=== PATIENT | male | born 1960 | race Caucasian/White ===

== ENCOUNTER 2016-12-11 10:30 | Emergency (ER) | payer OTHER ==
[~2016-12-11] VITALS: Ht 175.3 cm; Wt 98.0 kg
[2016-12-11 13:28] VITALS: BP 153/92
[2016-12-11] MEDS ORDERED: IBUPROFEN 600MG TABLET PO ONE (13:30)
== END 2016-12-11 13:40 | disposition home or self-care (01) ==
LOC: ER 12:11
DX: R05 Cough (principal); R06.02 Shortness of breath; G44.209 Tension-type headache, unspecified, not intractable; I10 Essential (primary) hypertension; E11.9 Type 2 diabetes mellitus without complications; E78.00 Pure hypercholesterolemia, unspecified; Z86.73 Personal history of transient ischemic attack (TIA), and cerebral infarction without residual deficits; F17.210 Nicotine dependence, cigarettes, uncomplicated
CPT/HCPCS: 71010; 99283; J7030